=== PATIENT | female | born 1975 | race Caucasian/White ===

== ENCOUNTER → 2023-02-01 | Emergency (ER) | payer BC ==
[~2023-02-01] VITALS: Ht 167.6 cm; Wt 93.0 kg
[~2023-02-01] MED LIST: ATORVASTATIN CA40 MG PO; METFORMIN HCL1000 M3 PO
== END | disposition home or self-care (01) ==
LOC: ER 09:41
DX: S99.812A Other specified injuries of left ankle, initial encounter (principal); S99.822A Other specified injuries of left foot, initial encounter; X58.XXXA Exposure to other specified factors, initial encounter; Y93.89 Activity, other specified; Y92.89 Other specified places as the place of occurrence of the external cause; Y99.8 Other external cause status; Z88.8 Allergy status to other drugs, medicaments and biological substances